=== PATIENT | male | born 2000 | race Two or more races ===

== ENCOUNTER 2023-10-23 12:45 | Emergency (ER) | payer OTHER ==
[~2023-10-23] VITALS: Ht 170.2 cm; Wt 49.9 kg
[2023-10-23] MEDS ORDERED: RINGERS SOLUTION,LACTATED 1,000 ML IV STA (13:51)
[2023-10-23 15:55] LABS: HEMATOCRIT 42.8 % (39.0-48.0); MEAN CELL VOLUME 88.2 fL (80.0-100.00); MEAN CORPUSCULAR HEMOGLOBIN 30.8 pg (27.00-32.0); MEAN CORPUSCULAR HGB CONC 34.9 g/dl (32.0-36.0); PLATELET COUNT 352 K/uL (150-450); RED BLOOD COUNT 4.86 M/uL (4.00-6.00); RED CELL DISTRIBUTION WIDTH 12.9 % (11.5-14.5)
[2023-10-23 16:23] LABS: CALCIUM 9.7 mg/dL (8.5-10.1); CREATININE SERUM 0.89 mg/dL (0.70-1.30); GFR 107.9; POTASSIUM 3.86 mEq/L (3.5-5.1)
== END 2023-10-23 19:17 | disposition home or self-care (01) ==
LOC: ER 12:46
PROVIDERS: General Practice
DX: K52.89 Other specified noninfective gastroenteritis and colitis (principal); R19.7 Diarrhea, unspecified; Z20.822 Contact with and (suspected) exposure to COVID-19